=== PATIENT | female | born 1960 | race Caucasian/White ===

== ENCOUNTER 2017-12-23 12:25 | Inpatient (IN) | payer BC, MEDICARE ==
[~2017-12-23] VITALS: Ht 152.4 cm; Wt 85.2 kg
[~2017-12-23 12:25] MED LIST: METO5 PO; ONDA4TAB4 PO
[2017-12-23 13:12] LABS: BASOPHILS % (AUTO) 0.3 % (0.0-5.0); EOSINOPHILS % (AUTO) 1.3 % (0.0-8.0); HEMATOCRIT 32.9 % (36-48); LYMPHOCYTES % (AUTO) 10.7 % (21.0-51.0); MEAN CORPUSCULAR HEMOGLOBIN 28.9 pg (27.0-33.0); MEAN CORPUSCULAR HGB CONC 33.1 g/dL (32.0-36.0); MEAN CORPUSCULAR VOLUME 87.2 fL (79-99); MONOCYTES % (AUTO) 8.2 % (3.0-13.0); NEUTROPHILS % (AUTO) 79.5 % (40.0-77.0); PLATELET COUNT (AUTO) 139 K/uL (130-400); RED BLOOD CELL COUNT(AUTO) 3.77 MIL/uL (4.00-5.50); RED CELL DISTRIBUTION WIDTH 13.5 % (11.0-15.5); WHITE BLOOD COUNT (AUTO) 7.9 K/uL (4.8-10.8)
[2017-12-23 13:34] LABS: ALBUMIN 2.5 g/dL (3.5-5.0); BILIRUBIN,TOTAL 0.4 mg/dL (0.2-1.0)
[2017-12-23 13:43] LABS: CREATININE 11.1 mg/dL (0.5-1.5)
[2017-12-23] MEDS ORDERED: ONDANSETRON HCL 4 MG/2 ML VIAL ONE ×2 (13:44→18:52)
[2017-12-23] MEDS ORDERED: MORPHINE SULFATE 4 MG/1ML SYG ONE (13:45)
[2017-12-23 15:37] LABS: INR 1.18 (0.85-1.15); PARTIAL THROMBOPLASTIN TIME 29.3 SEC (26.3-35.5); PROTHROMBIN TIME 12.4 SEC (9.6-11.6)
[2017-12-23] MEDS ORDERED: ASPIRIN 325 MG TABLET ONE (15:49)
[2017-12-23] MEDS ORDERED: EPINEPHRINE 1 MG/ML AMPULE ONE (17:57)
[2017-12-23] MEDS ORDERED: DiphenhydrAMINE HCL 50 MG/ML VIAL ONE (17:57)
[2017-12-23] MEDS ORDERED: DEXTROSE 25%-WATER 2.5 GM/10 ML SYG [INFANT] IVP ONE (19:37)
[2017-12-23] MEDS ORDERED: AURYXIA PO (19:49)
[2017-12-23] MEDS ORDERED: ROSU20TA PO (19:49)
[2017-12-23] MEDS ORDERED: BUPR150T3 PO (19:49)
[2017-12-23] MEDS ORDERED: FERR-63 PO (19:49)
[2017-12-23] MEDS ORDERED: WARF-67 PO (19:49)
[2017-12-23] MEDS ORDERED: FOLI1TAB85 PO (19:49)
[2017-12-23] MEDS ORDERED: ESOM40CA PO (19:49)
[2017-12-23] MEDS ORDERED: MOTILIUM PO (19:49)
[2017-12-23] MEDS ORDERED: CARV3.1262 PO (19:49)
[2017-12-23] MEDS ORDERED: [UNRECOGNIZED DRUG - OTHER] INJ (19:49)
[2017-12-23] MEDS ORDERED: METOCLOPRAMIDE 5 MG TABLET PO PRN (20:00)
[2017-12-23] MEDS ORDERED: GLUCAGON 1MG KIT 1 MG ML IM PRN (20:15)
[2017-12-23] MEDS: INSULIN HUMULIN R 100 UNIT/ML 3ML SQ SCH (21:00)
[2017-12-23] MEDS ORDERED: NITROGLYCERIN 1GM/1 INCH PACKET TD SCH (21:00)
[2017-12-23 22:20] LABS: TROPONIN I 0.14 ng/mL (0.00-0.06)
[2017-12-23 23:37] VITALS: BP 155/74
[2017-12-24] MEDS: ONDANSETRON 4 MG TABLET PO SCH ×5 (00:14→20:25)
[2017-12-24] MEDS: CARVEDILOL 3.125 MG TABLET PO SCH ×3 (00:14→20:24)
[2017-12-24] MEDS: BUPROPION HCL 150 MG TABLET.SA PO SCH ×3 (00:14→20:25)
[2017-12-24 03:48] VITALS: BP 103/55
[2017-12-24 04:38] LABS: HEMATOCRIT 32.1 % (36-48); MEAN CORPUSCULAR HEMOGLOBIN 29.3 pg (27.0-33.0); MEAN CORPUSCULAR HGB CONC 33.3 g/dL (32.0-36.0); MEAN CORPUSCULAR VOLUME 88.1 fL (79-99); PLATELET COUNT (AUTO) 136 K/uL (130-400); RED BLOOD CELL COUNT(AUTO) 3.65 MIL/uL (4.00-5.50); RED CELL DISTRIBUTION WIDTH 13.7 % (11.0-15.5); WHITE BLOOD COUNT (AUTO) 10.6 K/uL (4.8-10.8)
[2017-12-24 04:51] LABS: INR 1.2 (0.85-1.15); PROTHROMBIN TIME 12.6 SEC (9.6-11.6)
[2017-12-24 05:01] LABS: POTASSIUM 4.8 mmol/L (3.5-5.1)
[2017-12-24 05:07] LABS: CREATININE 11.8 mg/dL (0.5-1.5)
[2017-12-24] MEDS ORDERED: INSULIN HUMULIN R 100 UNIT/ML 3ML SQ SCH (05:45)
[2017-12-24] MEDS ORDERED: INSULIN HUMULIN R 100 UNIT/ML 3ML SQ ONE (05:50)
[2017-12-24] MEDS: INSULIN HUMULIN R 100 UNIT/ML 3ML SQ SCH ×3 (06:06→16:30)
[2017-12-24 07:10] VITALS: BP 101/57
[2017-12-24] MEDS: AURYXIA PO SCH ×3 (09:00→20:25)
[2017-12-24] MEDS ORDERED: EPOETIN ALFA 10,000 UNIT/ML VIAL SQ SCH (09:15)
[2017-12-24] MEDS: FOLIC ACID/VITAMIN B COMP W-C 1 MG CAPSULE PO SCH (09:16)
[2017-12-24] MEDS: ATORVASTATIN CALCIUM 40 MG TABLET PO SCH (09:17)
[2017-12-24] MEDS: ASPIRIN 81 MG EC TAB PO SCH (09:17)
[2017-12-24] MEDS: PANTOPRAZOLE SODIUM 40 MG TABLET.DR PO SCH (09:17)
[2017-12-24] MEDS: FERROUS SULFATE 325 MG TABLET.DR PO SCH (09:18)
[2017-12-24] MEDS: NITROGLYCERIN 1GM/1 INCH PACKET TD SCH ×2 (09:19→20:25)
[2017-12-24] MEDS: ENOXAPARIN SODIUM 30 MG/0.3 ML SQ SCH (09:21)
[2017-12-24] MEDS ORDERED: KETOROLAC TROMETHAMINE 15MG/ML IV PRN (11:00)
[2017-12-24] MEDS ORDERED: CELECOXIB 100 MG CAP PO PRN (11:00)
[2017-12-24] MEDS ORDERED: ONDANSETRON HCL 4 MG/2 ML VIAL IVP PRN (11:15)
[2017-12-24] MEDS: METOCLOPRAMIDE 10 MG/2 ML VIAL IVP SCH ×2 (11:16→13:23)
[2017-12-24] MEDS: TRAMADOL HCL 50 MG TABLET PO PRN ×2 (11:23→18:53)
[2017-12-24 12:05] VITALS: BP 107/52
[2017-12-24] MEDS ORDERED: WARFARIN SODIUM 2 MG TAB PO SCH ×2 (16:00)
[2017-12-24 16:22] VITALS: BP 98/55
[2017-12-24] MEDS: ONDANSETRON HCL MDV 20ML 2 MG/ML VIAL IVP PRN (18:53)
[2017-12-24 19:52] VITALS: BP 120/58
[2017-12-24] MEDS: METOCLOPRAMIDE 5 MG TABLET PO SCH (20:25)
[2017-12-25 00:08] VITALS: BP 95/51
[2017-12-25 04:01] LABS: BASOPHILS % (AUTO) 0.2 % (0.0-5.0); HEMATOCRIT 29.7 % (36-48); LYMPHOCYTES % (AUTO) 5.4 % (21.0-51.0); MEAN CORPUSCULAR HEMOGLOBIN 30.7 pg (27.0-33.0); MEAN CORPUSCULAR HGB CONC 35.3 g/dL (32.0-36.0); MONOCYTES % (AUTO) 3.9 % (3.0-13.0); NEUTROPHILS % (AUTO) 89.5 % (40.0-77.0); PLATELET COUNT (AUTO) 150 K/uL (130-400); RED BLOOD CELL COUNT(AUTO) 3.41 MIL/uL (4.00-5.50); WHITE BLOOD COUNT (AUTO) 7.9 K/uL (4.8-10.8)
[2017-12-25] MEDS: TRAMADOL HCL 50 MG TABLET PO PRN ×3 (04:01→20:34)
[2017-12-25] MEDS: ONDANSETRON HCL MDV 20ML 2 MG/ML VIAL IVP PRN ×2 (04:01→16:59)
[2017-12-25 04:11] LABS: INR 1.61 (0.85-1.15); PROTHROMBIN TIME 16.7 SEC (9.6-11.6)
[2017-12-25 04:13] LABS: POTASSIUM 3.6 mmol/L (3.5-5.1)
[2017-12-25 04:15] LABS: CREATININE 10.1 mg/dL (0.5-1.5)
[2017-12-25 04:51] VITALS: BP 124/58
[2017-12-25] MEDS ORDERED: INSULIN HUMULIN R 100 UNIT/ML 3ML SQ ONE (05:45)
[2017-12-25] MEDS: METOCLOPRAMIDE 5 MG TABLET PO SCH ×4 (06:36→20:32)
[2017-12-25 07:00] VITALS: BP 119/64
[2017-12-25] MEDS: ONDANSETRON 4 MG TABLET PO SCH ×4 (09:00→20:32)
[2017-12-25] MEDS: AURYXIA PO SCH ×3 (09:00→20:34)
[2017-12-25] MEDS ORDERED: TRAM50TA4 PO (09:18)
[2017-12-25] MEDS: FERROUS SULFATE 325 MG TABLET.DR PO SCH (09:53)
[2017-12-25] MEDS: FOLIC ACID/VITAMIN B COMP W-C 1 MG CAPSULE PO SCH (09:53)
[2017-12-25] MEDS: ASPIRIN 81 MG EC TAB PO SCH (09:53)
[2017-12-25] MEDS: BUPROPION HCL 150 MG TABLET.SA PO SCH ×2 (09:53→20:32)
[2017-12-25] MEDS: PANTOPRAZOLE SODIUM 40 MG TABLET.DR PO SCH (09:53)
[2017-12-25] MEDS: ATORVASTATIN CALCIUM 40 MG TABLET PO SCH (09:53)
[2017-12-25] MEDS: CARVEDILOL 3.125 MG TABLET PO SCH ×2 (09:54→20:32)
[2017-12-25] MEDS: NITROGLYCERIN 1GM/1 INCH PACKET TD SCH ×2 (09:55→20:33)
[2017-12-25] MEDS: ENOXAPARIN SODIUM 30 MG/0.3 ML SQ SCH (09:56)
[2017-12-25 11:00] VITALS: BP 119/64
[2017-12-25] MEDS ORDERED: REGADENOSON 0.4 MG/5 ML PF SYG IVP SCH (11:15)
[2017-12-25] MEDS: DEXTROSE 50%-WATER 50 ML DISP.SYRIN IV PRN ×2 (14:43→18:20)
[2017-12-25 16:00] VITALS: BP 122/57
[2017-12-25] MEDS: CEFTRIAXONE SODIUM 1 GM IV SCH (19:13)
[2017-12-25 19:37] VITALS: BP 116/55
[2017-12-26] VITALS (7 sets, daily range): BP systolic 109–153; BP diastolic 53–78
[2017-12-26] MEDS: ONDANSETRON HCL MDV 20ML 2 MG/ML VIAL IVP PRN ×2 (02:18→13:53)
[2017-12-26] MEDS: TRAMADOL HCL 50 MG TABLET PO PRN (02:18)
[2017-12-26 04:18] LABS: HEMATOCRIT 30.6 % (36-48); MEAN CORPUSCULAR HEMOGLOBIN 29.5 pg (27.0-33.0); MEAN CORPUSCULAR VOLUME 89.4 fL (79-99); PLATELET COUNT (AUTO) 135 K/uL (130-400); RED BLOOD CELL COUNT(AUTO) 3.42 MIL/uL (4.00-5.50); WHITE BLOOD COUNT (AUTO) 6.4 K/uL (4.8-10.8)
[2017-12-26 04:24] LABS: INR 1.78 (0.85-1.15); PROTHROMBIN TIME 18.5 SEC (9.6-11.6)
[2017-12-26] MEDS: METOCLOPRAMIDE 5 MG TABLET PO SCH ×4 (06:59→21:16)
[2017-12-26 07:38] LABS: APPEARANCE,URINE TURBID (CLEAR); BILIRUBIN,URINE NEGATIVE (NEGATIVE); GLUCOSE, URINE (UA) 500 mg/dL (NEGATIVE); KETONES,URINE 5 mg/dL (NEGATIVE); LEUKOCYTE ESTERASE ,URINE MODERATE (NEGATIVE); NITRATE,URINE NEGATIVE (NEGATIVE); OCCULT BLOOD,URINE LARGE (NEGATIVE); PROTEIN,URINE 100 (NEGATIVE); UROBILINOGEN,URINE 0.2 mg/dL (0.2-1.0)
[2017-12-26 07:44] LABS: COLOR,URINE OTHER (YELLOW)
[2017-12-26 07:51] LABS: BACTERIA,URINE Many /HPF (None Seen); WBC,URINE TNTC /HPF (0-1)
[2017-12-26 07:52] LABS: RBC,URINE 51-100 /HPF (0-1)
[2017-12-26 07:53] LABS: MUCUS,URINE Few LPF (None Seen); SQUAMOUS EPITHELIAL CELL,UR None Seen /LPF (0-2)
[2017-12-26] MEDS ORDERED: LEVO250T2 PO (07:59)
[2017-12-26] MEDS: ONDANSETRON 4 MG TABLET PO SCH ×4 (09:00→21:16)
[2017-12-26] MEDS: NITROGLYCERIN 1GM/1 INCH PACKET TD SCH (09:00)
[2017-12-26] MEDS: AURYXIA PO SCH (09:00)
[2017-12-26] MEDS: ATORVASTATIN CALCIUM 40 MG TABLET PO SCH (09:00)
[2017-12-26] MEDS: ASPIRIN 81 MG EC TAB PO SCH (11:23)
[2017-12-26] MEDS: CARVEDILOL 3.125 MG TABLET PO SCH ×2 (11:23→21:17)
[2017-12-26] MEDS: BUPROPION HCL 150 MG TABLET.SA PO SCH ×2 (11:23→21:16)
[2017-12-26] MEDS: PANTOPRAZOLE SODIUM 40 MG TABLET.DR PO SCH (11:23)
[2017-12-26] MEDS: LEVOFLOXACIN 500 MG TABLET PO SCH (11:23)
[2017-12-26] MEDS: ENOXAPARIN SODIUM 30 MG/0.3 ML SQ SCH (11:24)
[2017-12-26] MEDS: FERROUS SULFATE 325 MG TABLET.DR PO SCH (11:24)
[2017-12-26] MEDS: FOLIC ACID/VITAMIN B COMP W-C 1 MG CAPSULE PO SCH (11:24)
[2017-12-26] MEDS ORDERED: WARF1TAB46 PO (14:50)
[2017-12-26 17:30] LABS: APPEARANCE BODY FLUID SLIGHTLY CLOUDY (CLEAR); COLOR,BODY FLUID LT YELLOW (LT YELLOW); SPECIMENTYPE,BODY FLUID PERITONEAL; TOTAL VOLUME,BODY FLUID 70 mL
[2017-12-26 17:31] LABS: BODY FLUID WBC 180 /cu. mm.
[2017-12-26 17:33] LABS: BODY FLUID RBC 22 /cu. mm.
[2017-12-26] MEDS: CEFTRIAXONE SODIUM 1 GM IV SCH (17:58)
[2017-12-26 18:05] LABS: BF LYMPHOCYTE 2 %; BF MONOCYTE 9 %
[2017-12-26] MEDS ORDERED: HEPARIN SODIUM/PF 100UNIT/ML 5ML SYRINGE IV SCH (19:45)
[2017-12-26] MEDS ORDERED: NITROGLYCERIN 1GM/1 INCH PACKET TD SCH ×2 (21:11→21:12)
[2017-12-27] MEDS ORDERED: METOPROLOL TARTRATE 1 MG/ML 5ML VIAL IV PRN (00:45)
[2017-12-27] MEDS ORDERED: METOPROLOL TARTRATE 1 MG/ML 5ML VIAL IV ONE (00:49)
[2017-12-27] MEDS ORDERED: METOPROLOL TARTRATE 1 MG/ML 5ML VIAL IV SCH (01:15)
[2017-12-27 03:46] VITALS: BP 113/65
[2017-12-27] MEDS ORDERED: NITROGLYCERIN 1GM/1 INCH PACKET TD SCH (07:35)
[2017-12-27] MEDS ORDERED: CARV6.2579 PO (07:37)
[2017-12-27 07:39] VITALS: BP 135/81
[2017-12-27] MEDS: LEVOFLOXACIN 500 MG TABLET PO SCH (07:50)
[2017-12-27] MEDS: METOCLOPRAMIDE 5 MG TABLET PO SCH (07:50)
[2017-12-27] MEDS: FOLIC ACID/VITAMIN B COMP W-C 1 MG CAPSULE PO SCH (07:50)
[2017-12-27] MEDS: FERROUS SULFATE 325 MG TABLET.DR PO SCH (07:51)
[2017-12-27] MEDS: PANTOPRAZOLE SODIUM 40 MG TABLET.DR PO SCH (07:51)
[2017-12-27] MEDS: ONDANSETRON 4 MG TABLET PO SCH (07:51)
[2017-12-27] MEDS: CARVEDILOL 3.125 MG TABLET PO SCH (07:51)
[2017-12-27] MEDS ORDERED: CARVEDILOL 6.25 MG TABLET PO SCH (09:00)
[2017-12-27 11:27] VITALS: BP 126/71
[2017-12-27] MEDS ORDERED: WARFARIN SODIUM 1 MG TAB PO SCH (14:00)
== END 2017-12-27 13:55 | disposition home or self-care (01) | DRG 193 ==
LOC: EDH 12:25 → OBSVTOIN 16:00 → EDHIP 16:00 → 2DH 21:31 → EDHIP 22:28 → 2DH 23:11
PROVIDERS: ADMIT Internal Medicine; ATTEND Internal Medicine
DX: R09.1 Pleurisy (principal); K65.9 Peritonitis, unspecified; I13.2 Hypertensive heart and chronic kidney disease with heart failure and with stage 5 chronic kidney disease, or end stage renal disease; E10.22 Type 1 diabetes mellitus with diabetic chronic kidney disease; E10.43 Type 1 diabetes mellitus with diabetic autonomic (poly)neuropathy; D68.59 Other primary thrombophilia; E10.51 Type 1 diabetes mellitus with diabetic peripheral angiopathy without gangrene; K31.84 Gastroparesis; N18.6 End stage renal disease; F32.1 Major depressive disorder, single episode, moderate; N39.0 Urinary tract infection, site not specified; R07.89 Other chest pain; I25.10 Atherosclerotic heart disease of native coronary artery without angina pectoris; E78.5 Hyperlipidemia, unspecified; E10.610 Type 1 diabetes mellitus with diabetic neuropathic arthropathy; N31.9 Neuromuscular dysfunction of bladder, unspecified; D63.8 Anemia in other chronic diseases classified elsewhere; M81.0 Age-related osteoporosis without current pathological fracture; G47.33 Obstructive sleep apnea (adult) (pediatric); E78.2 Mixed hyperlipidemia; B19.20 Unspecified viral hepatitis C without hepatic coma; E10.65 Type 1 diabetes mellitus with hyperglycemia; E66.9 Obesity, unspecified; I25.5 Ischemic cardiomyopathy; I48.91 Unspecified atrial fibrillation; I25.2 Old myocardial infarction; Z86.718 Personal history of other venous thrombosis and embolism; Z90.710 Acquired absence of both cervix and uterus; Z68.36 Body mass index [BMI] 36.0-36.9, adult; Z88.8 Allergy status to other drugs, medicaments and biological substances; Z99.2 Dependence on renal dialysis; Z79.4 Long term (current) use of insulin; Z95.5 Presence of coronary angioplasty implant and graft; Z89.512 Acquired absence of left leg below knee; Z82.49 Family history of ischemic heart disease and other diseases of the circulatory system; Z83.3 Family history of diabetes mellitus
CPT/HCPCS: 36415; 71045; 78452; 78580; 80048; 80053; 81001; 82550; 82553; 82947; 82948; 83874; 84484; 85025; 85027; 85378; 85610; 85730; 87040; 87071; 87077; 87186; 87205; 89051; 93005; 93017; 93306; 96374; A4218; A9500; A9540; J0171; J0696; J0885; J1200; J1642; J1650; J1815; J2270; J2405; J2785; J3490; J7070; Q0162